=== PATIENT | male | born 1950 ===

== ENCOUNTER 2017-03-05 10:41 | Day surgery (SDC) | payer MEDICARE ==
[2017-03-05] MEDS ORDERED: Lactated Ringer's 500 ML IV ONE (10:51)
[2017-03-05] MEDS ORDERED: Propofol 10 mg/ml Inj (20 ML) ONE (11:47)
[2017-03-05 13:44] VITALS: BP 89/54; PULSE 56; RESP 18; TEMP 97; O2SAT 99
== END 2017-03-05 14:21 | disposition home or self-care (01) ==
LOC: H.ENDO 10:41
PROVIDERS: ATTEND Internal Medicine Gastroenterology
DX: Z12.11 Encounter for screening for malignant neoplasm of colon (principal); E78.5 Hyperlipidemia, unspecified; D12.5 Benign neoplasm of sigmoid colon; K57.30 Diverticulosis of large intestine without perforation or abscess without bleeding
CPT/HCPCS: 45385; 88305; J2001; J2704; J7120